=== PATIENT | female | born 1995 | race African-American/Black ===

== ENCOUNTER 2016-09-29 02:41 | Emergency (ER) | payer MEDICAID ==
[~2016-09-29] VITALS: Ht 172.7 cm; Wt 63.6 kg
[2016-09-29 04:04] VITALS: BP 115/64
[2016-09-29 04:05] LABS: APPEARANCE,URINE CLOUDY (CLEAR); GLUCOSE, URINE (UA) NEGATIVE (NEGATIVE); KETONES,URINE NEGATIVE (NEGATIVE); LEUKOCYTE ESTERASE ,URINE NEGATIVE (NEGATIVE); OCCULT BLOOD,URINE NEGATIVE (NEGATIVE); PH,URINE 5.5 (5.0-8.0); PROTEIN,URINE NEGATIVE (NEGATIVE)
[2016-09-29 04:08] LABS: CALCIUM OXALATE CRYSTALS,UR Rare /LPF (None Seen); RBC,URINE 0-2 /HPF (0-2); SQUAMOUS EPITHELIAL CELL,UR Rare /LPF (None Seen); WBC,URINE 0-2 /HPF (0-5)
== END 2016-09-29 04:33 | disposition home or self-care (01) ==
LOC: EMS 02:43
DX: F12.929 Cannabis use, unspecified with intoxication, unspecified (principal)
CPT/HCPCS: 99284